=== PATIENT | female | born 1965 | race Caucasian/White ===

== ENCOUNTER → 2020-06-20 | Outpatient (CLI) | payer OTHER | LOC: US 14:39 | PROVIDERS: ATTEND Internal Medicine | DX: N17.9 Acute kidney failure, unspecified (principal) | CPT/HCPCS: 76770 ==

== ENCOUNTER 2020-07-07 17:20 | Inpatient (IN) | payer MEDICARE, OTHER ==
[~2020-07-07] VITALS: Ht 172.7 cm; Wt 54.4 kg
--- NOTE | 2020-07-07 18:04 | Emergency Department Note ---
History of Present Illnes History of Present Illness Chief Complaint: Genitourinary History of Present Illness This is a 55 year old female Chief Complaint Comment Patient in from home with complaints of "no urine coming out for about 4 to 5 days". Patient reports that she has been having lab work done over the last 3 months that has been showing decreasing kidney function with unknown cause. Patient states that the last lab work showed a GFR of 15. Patient does have a history of alcohol abuse but denies a history of diabetes. Historian: Patient Arrival Mode: Car Waste Collection Driver Required: No Onset (how long ago): day(s) (5) Location: Bladder Quality: Retention Radiation: Reports non-radiation Severity: mild Onset quality: gradual Duration (how long): day(s) (5) Timing of current episode: constant Progression: worsening Chronicity: new Context: Denies recent illness, Denies recent surgery Relieving factors: none Exacerbating factors: none Associated symptoms: Reports denies other symptoms Treatments prior to arrival: none Past Medical/Family History Physician Review I have reviewed the patient's past medical and family history. Any updates have been documented here. Past Medical History Recent Fever: No Clinical Suspicion of Infectio: No New/Unexplained Change in Ment: No Past Medical History: Hypertension, Cancer Other Medical History: cervical cancer Past Surgical History: Hysterectomy, Colon Resection Other Surgery: Colostomy Review of Systems Review of Systems Constitutional: Reports no symptoms EENTM: Reports no symptoms Cardiovascular: Reports no symptoms Respiratory: Reports no symptoms Gastrointestinal: Reports no symptoms Genitourinary: Reports as per HPI Musculoskeletal: Reports no symptoms Integumentary: Reports no symptoms Neurological: Reports no symptoms Psychological: Reports no symptoms Endocrine: Reports no symptoms Hematological/Lymphatic: Reports no symptoms Physical Exam Related Data Allergies: Coded Allergies: oxycodone (Verified Allergy, Intermediate, vomiting, 07/07/20) Triage Vital Signs Vital Signs Date Time Temp Pulse Resp B/P (MAP) Pulse Ox O2 Delivery O2 Flow Rate FiO2 07/07/20 17:28 98.4 123 18 96/76 100 Room Air Vital signs reviewed: Yes Physical Exam CONSTITUTIONAL Constitutional: Present well-developed, Present well-nourished HENT HENT: Present normocephalic, Present atraumatic, Present oropharynx clear/moist, Present nose normal HENT L/R: Present left ext ear normal, Present right ext ear normal EYES Eyes: Reports PERRL, Reports conjunctivae normal NECK Neck: Present ROM normal PULMONARY Pulmonary: Present effort normal, Present breath sounds normal CARDIOVASCULAR Cardiovascular: Present regular rhythm, Present heart sounds normal, Present capillary refill normal, Present normal rate GASTROINTESTINAL Abdominal: Present soft, Present nontender, Present bowel sounds normal GENITOURINARY Genitourinary: Present exam deferred SKIN Skin: Present warm, Present dry MUSCULOSKELETAL Musculoskeletal: Present ROM normal NEUROLOGICAL Neurological: Present alert, Present oriented x 3, Present no gross motor or sensory deficits PSYCHOLOGICAL Psychological: Present mood/affect normal, Present judgement normal Results Laboratory Lab results reviewed: Yes Assessment & Plan Medical Decision Making MDM 55 y.o F presents for urinary retention. Known decreasing kidney function. Exam sows fever. Concern for UTI sepsis on w/u. Rocephin given and UC sent. Discussed with Dr. Xiao who will admit. Reassessment Reassessment time: 19:49 Reassessment Pain improved Assessment & Plan Final Impression: (1) UTI (urinary tract infection) (2) ELIANA (acute kidney injury) Depart Disposition: ADMITTED Last Vital Signs Date Time Temp Pulse Resp B/P (MAP) Pulse Ox O2 Delivery O2 Flow Rate FiO2 07/07/20 17:28 98.4 123 18 96/76 100 Room Air ALKA WIGGINS MD Jul 07, 2020 18:04
[2020-07-07 18:12] LABS: BASOPHILS # (AUTO) 0.1 (0.0-0.1); BASOPHILS % 0.3 % (0.0-1.0); HEMATOCRIT 31.8 % (34.2-44.1); HEMOGLOBIN 10.7 g/dL (12.0-16.0); LYMPHOCYTES # (AUTO) 0.4 (1.0-3.2); LYMPHOCYTES % 2.5 % (18.0-39.1); MEAN CORPUSCULAR HEMOGLOBIN 29.2 pg (28-32); MEAN CORPUSCULAR HGB CONC 33.6 g/dL (31-35); MEAN CORPUSCULAR VOLUME 86.9 fL (81-99); MONOCYTES # (AUTO) 1.9 (0.2-0.8); MONOCYTES % 11.1 % (4.4-11.3); NEUTROPHILS # (AUTO) 14.7 (2.1-6.9); NEUTROPHILS % 85.2 % (38.7-80.0); PLATELET COUNT 438 x10e3/uL (140-360); RED BLOOD COUNT 3.66 x10e6/uL (3.6-5.1); RED CELL DISTRIBUTION WIDTH 13.2 % (11.7-14.4)
[2020-07-07 18:29] LABS: ALBUMIN/GLOBULIN RATIO 0.6 (0.8-2.0); ANION GAP 24.7 mmol/L (8-16); CALCIUM 8.3 mg/dL (8.4-10.2); CREATININE, SERUM 6.34 mg/dL (0.57-1.11); POTASSIUM 3.7 mmol/L (3.5-5.1)
--- NOTE | 2020-07-07 18:46 | NUR ---
patient attempted to void. drops in bedside commode. bladder scan - 873 ml. notifed ER MD, v/o for indwelling cath. 800ml out with 16fr cath. patient tolerated well but still c/o pain and needing pain meds. ER MD made aware.
[2020-07-07] MEDS ORDERED: FENTANYL CITRATE/PF 100MCG/2 ML INJ IV ONE ×2 (19:00→22:45)
[2020-07-07] MEDS ORDERED: ACETAMINOPHEN 325 MG TAB PO ONE (19:15)
[2020-07-07] MEDS ORDERED: LACTATED RINGER'S 1,000 ML INJ ONE (19:15)
[2020-07-07 19:17] LABS: BILIRUBIN,URINE NEGATIVE (NEGATIVE); CLARITY,URINE SL CLOUDY (CLEAR); COLOR,URINE STRAW (YELLOW); KETONES,URINE NEGATIVE (NEGATIVE); LEUKOCYTE ESTERASE ,URINE MODERATE (NEGATIVE); NITRITE,URINE NEGATIVE (NEGATIVE); PROTEIN,URINE DIPSTICK 1+ (NEGATIVE); URINE UROBILINOGEN 0.2 mg/dL (0.2 - 1)
[2020-07-07 19:29] LABS: BACTERIA,URINE MANY /HPF
[2020-07-07] MEDS ORDERED: CEFTRIAXONE SOD 1 GM/NS 50 ML 50 ML IV ONE (19:45)
--- NOTE | 2020-07-07 20:23 | Diagnostic Imaging Report ---
EXAM: CT Abdomen and Pelvis WITHOUT contrast INDICATION: Lower abdominal pain. COMPARISON: None. TECHNIQUE: Abdomen and pelvis were scanned utilizing a multidetector helical scanner from the lung base to the pubic symphysis without administration of IV contrast. Absence of intravenous contrast decreases sensitivity for detection of focal lesions and vascular pathology. Coronal and sagittal reformations were obtained. Routine protocol was performed. IV CONTRAST: None ORAL CONTRAST: None COMPLICATIONS: None RADIATION DOSE: Total DLP: 302 mGy*cm Estimated effective dose: (DLP x 0.015 x size factor) mSv CTDIvol has been reviewed. It is below the limits set by the Radiation Protocol Committee (RPC). Dose modulation, iterative reconstruction, and/or weight based adjustment of the mA/kV was utilized to reduce the radiation dose to as low as reasonably achievable. FINDINGS: LINES and TUBES: None. LOWER THORAX: Unremarkable HEPATOBILIARY: The liver is diffuse hypodense compared to the spleen, consistent with diffuse hepatic diffuse hepatic steatosis. No focal hepatic lesions. No biliary ductal dilation. GALLBLADDER: No radio-opaque stones or sludge. No wall thickening. SPLEEN: No splenomegaly. PANCREAS: No focal masses or ductal dilatation. ADRENALS: No adrenal nodules KIDNEYS/URETERS: There is mild hydroureteronephrosis on the right. The distal ureter within the pelvis is not well visualized. It is difficult to determine whether one of the multiple punctate calcifications within the pelvis represent an obstructive ureteral stone versus phleboliths. The left kidney is normal for image technique. GI TRACT: Status post partial colectomy with a left lower abdominal colostomy in place. The remnant colon is decompressed. There are multiple loops of dilated small bowel measuring up to 5 cm with air-fluid levels. There is a transition point seen in the in the right side of the pelvis (series 3 images 1 32-1 41). The appendix is not visualized. PELVIC ORGANS/BLADDER: There is circumferential wall thickening of the urinary bladder with a Whitaker catheter in place. Air pocket within the urinary bladder is likely from recent instrumentation. There are radiodense seeds in the pelvis, likely from prior indeterminate treatment. LYMPH NODES: No lymphadenopathy. VESSELS: Scattered mild arterial vascular calcifications. PERITONEUM / RETROPERITONEUM: No free air or fluid. BONES: There are mild degenerative changes in the spine. SOFT TISSUES: Unremarkable. IMPRESSION: 1. Small bowel obstruction with a transition point seen within the right pelvis, likely from adhesive disease. 2. Right hydroureteronephrosis with difficulty assessing the distal ureter for obstructive stone. 3. Circumferential wall thickening of the urinary bladder suggestive of cystitis. Signed by: Samra Singh MD on 07/07/2020 8:20 PM
[2020-07-07] MEDS ORDERED: SODIUM CHLORIDE 0.9% 1000ML 1,000 ML IV SCH (20:30)
--- NOTE | 2020-07-07 20:50 | NUR ---
PATIENT REFUSED NG TUBE, EXPLAINED BENEFITS AND CONSEQUENCES, PATIENT ASSUMES RESPONSIBILITY.
[2020-07-07] MEDS ORDERED: SODIUM CHLORIDE 0.9% 1000ML 1,000 ML IV ONE (22:15)
[2020-07-07] MEDS ORDERED: GUAIFENESIN/CODEINE 10 ML CUP PO PRN (23:30)
[2020-07-07] MEDS ORDERED: ONDANSETRON HCL INJ 2MG/ML 2ML 2 MG/ML VIAL IV PRN (23:30)
[2020-07-07] MEDS ORDERED: POTASSIUM CHLORIDE 20 MEQ TAB CR PO PRN (23:30)
[2020-07-07] MEDS ORDERED: BENZONATATE 100 MG CAP PO PRN (23:30)
[2020-07-07] MEDS ORDERED: MELATONIN 5 MG TABLET PO PRN (23:30)
[2020-07-07] MEDS ORDERED: HYDROCODONE/APAP 5MG-325MG TAB PO PRN (23:30)
[2020-07-07] MEDS ORDERED: DOCUSATE SODIUM 100 MG CAP PO PRN (23:30)
[2020-07-08] MEDS ORDERED: CEFEPIME 1GM/NS 0.9% 50 ML 50 ML IV SCH
[2020-07-08] MEDS ORDERED: CEFEPIME 1GM/NS 0.9% 50 ML 50 ML IV ONE
--- NOTE | 2020-07-08 | NUR ---
patient had ng tube placed to l nare, placement checked via ascultation, brown bile coming out of tube, patient tolerated procedure well, placed on low intermittent suction
[2020-07-08] MEDS ORDERED: ACETAMINOPHEN 650 MG SUPP PR PRN (00:15)
[2020-07-08] MEDS ORDERED: SODIUM CHLORIDE 0.9% 1000ML 1,000 ML IV ONE (00:45)
[2020-07-08 01:00] VITALS: BP_SYST 109; BP_SYST 115; BP_DIAS 50; BP_DIAS 57
[2020-07-08 04:00] VITALS: BP 90/65
[2020-07-08 05:47] LABS: ALBUMIN 2.2 g/dL (3.5-5.0); ALBUMIN/GLOBULIN RATIO 0.5 (0.8-2.0); ANION GAP 17.2 mmol/L (8-16); CALCIUM 7.7 mg/dL (8.4-10.2); CREATININE, SERUM 5.26 mg/dL (0.57-1.11); PHOSPHORUS 4.8 MG/DL (2.3-4.7); POTASSIUM 3.2 mmol/L (3.5-5.1)
[2020-07-08 05:51] LABS: MAGNESIUM 1.1 MG/DL (1.3-2.1)
[2020-07-08 06:43] LABS: BASOPHILS % 0.3 % (0.0-1.0); EOSINOPHILS % 0.1 % (0.0-6.0); HEMATOCRIT 25.9 % (34.2-44.1); HEMOGLOBIN 8.8 g/dL (12.0-16.0); LYMPHOCYTES # (AUTO) 0.5 (1.0-3.2); LYMPHOCYTES % 5.5 % (18.0-39.1); MEAN CORPUSCULAR HEMOGLOBIN 29.5 pg (28-32); MEAN CORPUSCULAR VOLUME 86.9 fL (81-99); MONOCYTES # (AUTO) 1.7 (0.2-0.8); MONOCYTES % 18.6 % (4.4-11.3); NEUTROPHILS # (AUTO) 6.9 (2.1-6.9); NEUTROPHILS % 75.1 % (38.7-80.0); PLATELET COUNT 352 x10e3/uL (140-360); RED BLOOD COUNT 2.98 x10e6/uL (3.6-5.1); RED CELL DISTRIBUTION WIDTH 13.3 % (11.7-14.4)
[2020-07-08] MEDS ORDERED: PANTOPRAZOLE SOD 40 MG TABEC PO SCH (07:30)
[2020-07-08] MEDS ORDERED: POTASSIUM CHLORIDE 20MEQ/100ML 200 ML IV ONE (07:45)
[2020-07-08 08:00] VITALS: BP 87/65
[2020-07-08] MEDS ORDERED: MAGNESIUM SULFATE 2GM/50ML 50 ML IV ONE (08:00)
[2020-07-08] MEDS ORDERED: SODIUM CHLORIDE 0.9% 250ML 250 ML ONE (08:04)
--- NOTE | 2020-07-08 08:44 | Diagnostic Imaging Report ---
X-ray chest/upper abdomen History: Check NG tube placement Findings: A nasogastric tube is seen coursing on the expected path and the tip and sidehole are in the left upper quadrant, the expected location of the stomach. Incidental findings: Gas distended loops of small bowel. Unremarkable cardiomediastinal and diaphragmatic silhouettes. Possible left apical lung scarring. No acute skeletal abnormality. Impression: Nasogastric tube in expected location. Signed by: Herson Soria MD on 07/08/2020 8:40 AM
[2020-07-08 09:10] VITALS: BP 87/65
[2020-07-08] MEDS ORDERED: SODIUM CHLORIDE 0.9% 500ML 500 ML IV ONE (09:45)
[2020-07-08] MEDS ORDERED: DEXTROSE 5%/0.9% SOD CHL 1,000 ML IV SCH (10:00)
[2020-07-08] MEDS ORDERED: SODIUM CHLORIDE 0.9% 1000ML 500 ML IV STA (11:13)
[2020-07-08 12:00] VITALS: BP 81/58
[2020-07-08] MEDS ORDERED: VANCOMYCIN 1GM/NS 250 ML 250 ML IV ONE (14:00)
--- NOTE | 2020-07-08 14:12 | Consultation ---
DATE OF CONSULTATION: Pulmonary Critical Care Consultation CHIEF COMPLAINT: Urinary retention, low blood pressure and abdominal pain. HISTORY OF PRESENT ILLNESS: The patient is a 55-year-old woman. Ten years ago, she had cervical cancer. She had a hysterectomy followed by radiation and chemotherapy. Two years ago, she required a diverting colostomy because of difficulty defecating. She is not sure if she actually had an obstruction. She now complains of decreased urine output for 4 to 5 days. She also believes she has a history of prior renal insufficiency. After arriving in the emergency department, Whitaker catheter was placed and she had significant urinary retention. She was also noted to have a low blood pressure and was started on intravenous fluids. PAST SURGICAL HISTORY: 1. Status post hysterectomy. 2. Status post diverting colostomy. PAST MEDICAL HISTORY: 1. History of cervical cancer requiring radiation and chemotherapy. 2. Hypertension. SOCIAL HISTORY: The patient drinks about two drinks a day. The patient also is a smoker. ALLERGIES: SHE IS ALLERGIC TO OXYCODONE. FAMILY HISTORY: Noncontributory. REVIEW OF SYSTEMS: The patient is afebrile. She does not complain of headache or neck pain. She is not having any chest pain. She has no nausea or vomiting. She does have some abdominal pain. She reports difficulty urinating. She has no leg edema. PHYSICAL EXAMINATION: VITAL SIGNS: The blood pressure is 81/58, saturation is 99% on room air, and the pulse is 104. She is afebrile but the T-max is 99.9. HEENT: Shows no facial swelling or erythema. LYMPHATIC: Shows no submandibular, cervical, or supraclavicular adenopathy. CARDIAC: Reveals regular rate and rhythm with normal S1 and S2. LUNGS: Auscultation of lungs shows decreased breath sounds at the bases. There is no wheezing. ABDOMEN: Mildly tender. There is no rebound. She does not have guarding. She does have a colostomy bag in place with some stool. EXTREMITIES: She has no leg edema. SKIN: She has no skin rashes. LABORATORY DATA: BUN to creatinine ratio is 58 to 5.26. This is improved from 6.34 when she came to the emergency department. Her carbon dioxide is 15 and her potassium is 3.2. Other electrolytes are within normal limits. Lactic acid was initially 2.4, but is now 1.4. Her magnesium is 1.1 and her albumin is 2.2. White blood cell count was initially 17.3, but is now 19.25. Hemoglobin is 8.8, and the platelet count is 352. Urinalysis shows 6 to 10 white blood cells per high-powered field. RADIOGRAPHIC DATA: CT scan of the abdomen and pelvis shows a small bowel obstruction with a transition point seen within the right pelvis. She also has a right hydronephrosis as well as circumferential wall thickening of the urinary bladder. IMPRESSION: 1. Sepsis secondary to urinary tract infection and abdominal source, present on admission. 2. Acute renal failure. 3. Small-bowel obstruction. 4. Urinary retention. 5. Hypomagnesemia. 6. Hypokalemia. PLAN: 1. The patient will receive 30 mL/kg of IV fluid in accordance with the sepsis protocol. 2. Panculture the patient. 3. Begin broad-spectrum antibiotics. 4. Continue to monitor renal function after relieving urinary obstruction and giving intravenous fluids. 5. General surgery consultation. 6. DVT prophylaxis. MD KARO Velasquez/CAROL /[id number]
[2020-07-08] MEDS: MORPHINE SULFATE INJ 4 MG/ML INJ 1ML IV PRN ×2 (14:40→16:19)
--- NOTE | 2020-07-08 15:27 | Consultation ---
DATE OF CONSULTATION: 07/08/2020 Urology Consultation REASON FOR CONSULTATION: Hydronephrosis. HISTORY OF PRESENT ILLNESS: Evy Curiel is a 55-year-old woman who came in with abdominal pains, nausea and vomiting. The patient also was found to have urinary retention and a Whitaker catheter was placed. The patient had chemotherapy and radiotherapy for cervical cancer. She required a diverting colostomy several years ago due to defecating problems. The patient was found to have renal insufficiency and hydronephrosis was noted on CT and urological consultation was sought. She has a small bowel obstruction. PAST MEDICAL AND SURGICAL HISTORY: 1. Status post total abdominal hysterectomy, bilateral salpingo-oophorectomy. 2. Status post diverting colostomy. 3. Cervical cancer, status post radiotherapy and chemotherapy. 4. Hypertension. 5. Renal insufficiency. ALLERGIES: OXYCODONE. CURRENT MEDICATIONS: Please refer to the MAR. SOCIAL HISTORY: The patient drinks socially. She also smokes. She denies drug use. FAMILY HISTORY: Noncontributory to the active urological problems. REVIEW OF SYSTEMS: Discussed as above in history of present illness and past medical history, otherwise negative for all systems. PHYSICAL EXAMINATION: GENERAL: An ill-appearing woman with a nasogastric tube in place, lying in bed, no apparent distress. VITAL SIGNS: She is currently afebrile. Vital signs currently stable. ABDOMEN: Soft. It is nondistended, but she is decompressed with a nasogastric tube. GENITOURINARY: Whitaker catheter in place draining yellow urine out. Internal examination is deferred at the present time. For the remaining physical examination systems, please refer to the admission history and physical in the chart. LABORATORY STUDIES: Urine culture is pending. White blood cell count was 17,270, hemoglobin 8.8, and platelets 352,000. The patient's creatinine is 5.26, potassium is low at 3.2, calcium is low at 7.7. Urinalysis significant for pyuria and microhematuria and proteinuria. She has many bacteria as well. CT scan of the abdomen and pelvis reveals small bowel obstruction with right hydroureteronephrosis with unknown etiology, could be ureterolithiasis, but it could also be radiation and surgery causes from prior cervical cancer therapy. ASSESSMENT: 1. Right hydroureteronephrosis. 2. Urinary retention according to the chart, but I am unsure what the volume was of urine in the bladder when a Whitaker catheter was placed. 3. Whitaker catheter in situ. 4. Leukocytosis that improved. 5. Anemia. 6. Acute on chronic renal insufficiency. 7. Hypokalemia. 8. Hypocalcemia. 9. Urinary tract infection. 10. Microhematuria. 11. Proteinuria. PLANS: 1. Hematological and electrolyte abnormalities per the primary team. 2. Antibiotics. 3. Management of the bowel obstruction per General Surgery. 4. The patient may need cystoscopy, retrograde pyelograms, possible insertion of stent when her hospital course and medical course is better defined. Should she need to go to the operating room, I would appreciate coordinating with me because I am utilized that occasion in anesthetic to do cystoscopy with retrograde pyelograms and possibly insertion of right stent. Thank you very much for involving us in care of your patient. We will be happy to follow along with you as well as an outpatient. Sebastian Giron MD [place]/MODL /[id number] cc: Samir Sheth MD
[2020-07-08 16:00] VITALS: BP 103/82
[2020-07-08] MEDS ORDERED: NICOTINE 21 MG/EA PATCH TOP SCH (16:30)
[2020-07-08] MEDS ORDERED: FAMOTIDINE 20 MG/2 ML VIAL IV SCH (17:00)
--- NOTE | 2020-07-08 17:00 | NUR ---
PATIENT STATED THAT SHE WOULD LIKE TO TALK TO A DOCTOR ABOUT POSSIBLY LEAVING AMA. RN DISCUSSED SOME OF THE RISKS OF LEAVING AMA INCLUDING WORSENING SICKNESS. PATIENT STATED THAT SHE SMOKES 2 PACKS OF CIGARETTS A DAY AND CANNOT SIT IN BED ANY LONGER. RN DISCUSSED WITH MD RALPH AND NICOTINE PATCH ORDERED. MD RALPH STATED THAT HE WAS COMING TO SEE HER AND WOULD DISCUSS PLAN WITH HER.
--- NOTE | 2020-07-08 19:48 | NUR ---
CT with contrast ordered per COMPUTING SYSTEMS MECHANIC: pt refuses saying she's leaving as soon as she sees the doctor. Pt's daughter is at bedside and attempted to get her mom to have the CT done while she waits for the MD, but pt insistent on refusing CT and leaving. Pt A/O x 3 with tremors noted, hx of EtOH. ST 100's on room air, congested loose cough. NG to LIS brown drainage noted. Colostomy and kong present. D5NS at 100 ml/hr. Pt is increasingly agitated waiting for MD.
--- NOTE | 2020-07-08 21:00 | NUR ---
Dr. Xiao discussed plan of care including the risks and benefits at great length with pt and her daughter at bedside in my presence. Pt is septic with a SBO, ELIANA, UTI on ABx therapy, NG decompression, Whitaker d/t 5 day retention and IVF's. CT with contrast pending which pt refused. After discussion, pt continues to insist on leaving AMA to go to another hospital where her surgeon has treated her in the past. Dr. Xiao reemphasized it isn't advisable to leave. IV's, NG and Whitaker removed and AMA paperwork signed. Pt taken by wheelchair to her daughter's car.
--- NOTE | 2020-07-08 21:48 | Discharge Summary ---
FINAL DISCHARGE DIAGNOSES: 1. Left against medical advice. 2. Partial small-bowel obstruction with a nasogastric tube. 3. Urinary retention. 4. Sepsis with hypotension and leukocytosis. CONSULTANTS: Pulmonary Critical Care, General surgery, Urology. PHYSICAL EXAMINATION: VITAL SIGNS: Temperature was 99.9, pulse 103, respiratory rate 21, blood pressure 103/82, pulse ox 100% on room air. LABORATORY DATA: Labs show white count 9.2 on admission 17, hemoglobin 8.8, hematocrit 25, platelets of 352. Chemistry; sodium 136, potassium 3.2, chloride 107, bicarb 15, anion gap of 17, BUN 58, creatinine is 5.2, glucose is 126, lactic acid 1.4, magnesium 1.1, replaced, phosphorus 4.8, calcium 7.7, troponin 0.026, albumin 2.2. MICROBIOLOGY: Blood cultures and urine cultures no growth. IMAGING STUDIES: CT abdomen and pelvis shows small bowel obstruction with transition point seen within the right pelvis, likely from adhesive disease. Right hydroureteronephrosis with difficult in accessing the distal ureter for obstructive stone. Circumferential wall thickening of the urinary bladder suggestive of cystitis. Abdominal x-ray, NG tube in expected location. HOSPITAL COURSE: A 55-year-old female has multiple medical issues, of note history of cervical cancer with chemoradiation, also multiple small bowel obstructions with a colostomy. She presented to the [facility] with abdominal distention and urinary retention. A Whitaker catheter was inserted, significant amount of urine output was produced and Urology was consulted. As per Urology recommendations, continue with Whitaker at a later date. During this hospital stay, she may need a cystoscopy with an underlying right ureteral stent placement. As for her imaging studies, CT abdomen and pelvis was consistent with a bowel obstruction. An NG tube was inserted. As per General Surgery recommendations, he recommended n.p.o., IV fluids for hydration, NG tube, antibiotics and serial x-ray exams. He recommended no surgical intervention needed at this time. While here, the patient was found to be hypotensive, was treated for underlying sepsis and was found to have leukocytosis as well. Gustafson cultures to date was no growth and she was maintained on IV antibiotic therapy. She required and received several normal saline boluses while here in the hospital stay. Pulmonary Critical Care was consulted as well to evaluate and monitor the patient in the event she needed ICU. I came and spoke with the patient with the daughter at bedside about the overall findings and the recommendations by the consultants. At this time, she is not interested and wants to go against medical advice. I discussed the risks involved in leaving against medical advice with many medical issues involved at this current moment with a small bowel obstruction, urinary retention and also being treated for sepsis. The patient was alert, awake and oriented in sound mind and her daughter was present at bedside as well. At this time, she wants to leave against medical advice. Nurse Ge was present during this conversation with the patient about leaving against medical advice and that the risk is too high to leave AMA, but she insisted, signed appropriate documentation and left against medical advice and left in the chart. The patient left against medical advice. DISPOSITION: Left AMA. CONDITION: Left against medical advice. In the event of any worsening symptoms, the patient was advised to come back to the ED for further evaluation. Discharge summary took greater than 35 minutes. The patient left against medical advice. MD CAMPBELL Roman/CAROL /[id number]
--- NOTE | 2020-07-08 23:49 | History and Physical ---
CHIEF COMPLAINT: Lower abdominal pain, decreased urine output. HISTORY OF PRESENT ILLNESS: A 55-year-old female. She has a significant past medical history of cervical cancer 10 years ago with hysterectomy, radiation chemotherapy, also has a history of multiple small bowel obstructions, has a colostomy performed about 2 years ago. She reports to the emergency room here at [facility] with difficulty urinating for the last 4 to 5 days. According to the reports, the patient had significant amount of urine from the Whitaker catheter after the insertion was performed in the ER. The patient has not had a history of any kind urinary retention according to the reports. She also had a CT abdomen and pelvis that showed evidence of a partial small bowel obstruction as well. She does have a colostomy in the left lower abdomen with significant amount of output. The patient denies any cough, congestion, or any fever. No chest pain or any palpitations. No nausea. No vomiting. The patient was seen and evaluated at bedside on the medical floor. She is currently doing well with no other issues at this time. She did present with some hypotension. She did have a low-grade fever and was being treated for underlying sepsis and required multiple boluses of fluids. REVIEW OF SYSTEMS: Pertinent positive; urinary retention, lower abdominal pain. The rest of 14-point review of systems have been reviewed with the patient and are negative. ALLERGIES: TO OXYCODONE. HOME MEDICATIONS: None recorded. PAST MEDICAL HISTORY: She has a history of cervical cancer, had a total abdominal hysterectomy, chemotherapy and radiation, was following up with a general surgeon in [facility] and an oncologist in [facility], she has multiple small bowel obstructions. She is a chronic smoker. PAST SURGICAL HISTORY: She had a total abdominal hysterectomy, multiple small bowel obstructions, has a colostomy as well. SOCIAL HISTORY: She is a chronic smoker, 2 packs per day. No drugs. No alcohol. FAMILY HISTORY: Noncontributory. PHYSICAL EXAMINATION: VITAL SIGNS: Temperature is 99.9, pulse 103, respiratory rate is 21, blood pressure is 103/82, pulse ox 100% on room air. GENERAL: Not in acute distress. Alert and oriented x3. Cooperative on examination. HEENT: Head is normocephalic and atraumatic. Eyes; pupils are equal, round, and reactive to light bilaterally. Extraocular movements are intact bilaterally. Throat, no evidence of any erythema or exudates in the posterior pharynx. Has poor dentition. NECK: Supple. Good range of motion. She has an NG tube as well. PULMONARY: Clear to auscultation bilaterally. No wheezing. No rales. No rhonchi. No crackles appreciated. CARDIOVASCULAR: Positive S1 and S2. No murmurs, rubs, or gallops appreciated. ABDOMEN: Very soft, nontender to palpation, has a colostomy in the left lower quadrant, has an NG tube to intermittent wall suctioning. SKIN: Intact, warm to touch. Good cap refill. MUSCULOSKELETAL: Strength 5/5 throughout. No evidence of muscle deficits on examination. LABORATORY FINDINGS: Show white count on admission 17, now 9.2; hemoglobin 8.8; hematocrit is 25; and platelets of 352. Chemistry; sodium 136, potassium 3.2, chloride 107, bicarb is 15, anion gap is 17, BUN is 58, creatinine 5.26, glucose is 126, hemoglobin A1c is 5.6, calcium is 7.7, phosphorus is 4.8, magnesium is 1.1. LFTs; AST 37, ALT is 15, alkaline phosphatase 132. CK is 133, troponin 0.026. Her albumin was 2.2. Urinalysis was cloudy, 1+ protein, 6 to 10 rbc's, 6 to 10 wbc's, many bacteria. Coronavirus is pending. MICROBIOLOGY: Blood and urine cultures were pending. IMAGING STUDIES: CT abdomen and pelvis showed small bowel obstruction with a transition point seen within the right pelvis, likely from adhesive disease. Right hydroureteronephrosis with difficult to assess in the distal ureter for obstructive stone. Circumferential wall thickening of the urinary bladder suggestive of cystitis. Abdominal x-ray, NG tube in expected location. IMPRESSION: 1. She has a partial small bowel obstruction with a left lower quadrant colostomy with good output. 2. Urinary retention with underlying urinary tract infection. 3. Sepsis with leukocytosis, presumed from underlying urinary tract infection and obstruction. 4. Right hydroureteronephrosis. 5. Status post total abdominal hysterectomy with postop chemoradiation 10 years ago. 6. Acute kidney injury secondary to postobstructive nephropathy. 7. Electrolyte abnormalities. PLAN: At this time, the patient has an NG tube to intermittent wall suctioning and has significant amount of output. Her colostomy also has significant amount of output at this time. General Surgery recommendations noted. N.p.o., hydration, NG tube as well as antibiotics with x-rays, but no surgical intervention needed. As for her urological issues, Urology recommendations noted. Continue with the Whitaker catheter for now. May need at some point, cystoscopy with right ureteral stent placement once the patient is much more stable. Critical Care was involved due to underlying hypotension, was given multiple boluses of fluids with much improved blood pressure noted. We will continue with pancultures, blood and urine cultures, IV antibiotic therapy with cefepime. She was given one dose of vancomycin earlier today. Replace electrolytes accordingly. Continue with n.p.o. status, IV fluid hydration with D5 NS. Put her on Lovenox for DVT prophylaxis. At this time, consultants involved General Surgery, Urology, and Pulmonary Critical Care. All consultants discussed the plan of care with the patient, which the patient verbalized that during my interview with her. She seems to be interested in going to [facility], where all of her physicians are at. I do not recommend that at this current moment due to underlying circumstance with the bowel obstruction and also underlying urinary retention. Also with her hypotension, being treated for sepsis is highly not recommended for discharge. Her daughter was at bedside when I spoke with her, with the patient as well as the nursing staff and it seems they may be interested in leaving against medical advice, which is not recommended. At this time, we will continue to monitor very closely. If the patient has stays, we will continue to do the conservative treatment as recommended by the consultants and follow consult recommendation. MD CAMPBELL Roman/CAROL /[id number]
[2020-07-09] MEDS ORDERED: CEFEPIME 1GM/NS 0.9% 50 ML 50 ML IV SCH
== END 2020-07-08 23:00 | disposition left against medical advice (07) | DRG 872 ==
LOC: ER 17:53 → ERHOLD 19:40 → IMCU 07-08 00:18
PROVIDERS: ADMIT Internal Medicine; ATTEND Internal Medicine
DX: A41.9 Sepsis, unspecified organism (principal); N17.9 Acute kidney failure, unspecified; N39.0 Urinary tract infection, site not specified; N13.6 Pyonephrosis; K56.50 Intestinal adhesions [bands], unspecified as to partial versus complete obstruction; I10 Essential (primary) hypertension; Z85.41 Personal history of malignant neoplasm of cervix uteri; Z88.5 Allergy status to narcotic agent; E87.6 Hypokalemia; E83.42 Hypomagnesemia; R33.9 Retention of urine, unspecified; D64.9 Anemia, unspecified; E83.51 Hypocalcemia; Z93.3 Colostomy status; Z11.59 Encounter for screening for other viral diseases; F17.200 Nicotine dependence, unspecified, uncomplicated
CPT/HCPCS: 36415; 51700; 74018; 74176; 80053; 81001; 82550; 82553; 83036; 83605; 83735; 84100; 84484; 85025; 87040; 87086; 96360; 96361; 99284; J0692; J0696; J2270; J3010; J3370; J3475; J3480; J7030; J7040; J7042; J7050